=== PATIENT | female | born 1970 | race Caucasian/White ===

== ENCOUNTER → 2018-09-06 22:30 | Outpatient (CLI) | payer MEDICAID, SELFPAY ==
[2018-09-06 22:51] LABS: Absolute Lymphocyte Count 2.34 X10^3/ul (0.83-4.51); Absolute Neutrophil Count 5.2 X10^3/uL (2.0-7.7); Basophil# 0.02 X10^3/uL; Basophil% 0.2 % (0-1); Eosinophil# 0.39 X10^3/uL; Eosinophils% 4.5 % (0-5); Hematocrit 43.1 % (37-47); Hemoglobin 13.9 g/dl (12.0-15.0); Lymphocyte # 2.34 X10^3/ul (4.0); Lymphocyte % 26.9 % (19-41); Mean Corp Hgb Conc 32.3 g/gl (32-36); Mean Corpuscular Hgb 29.4 pg (27.0-32.0); Mean Corpuscular Volume 91.1 fL (81-99); Mean Platelet Vol. 11.6 fl (6.2-12.0); Monocyte# 0.69 X10^3/uL; Monocyte% 7.9 % (0-10); Neutrophil # 5.24 X10^3/uL (2.7-7.7); Neutrophil % 60.3 % (47-70); Platelet Count 248 K/mm3 (150-450); RBC Distribution Width CV 13.9 % (11.6-14.6); RBC Distribution Width SD 45.9 fl (35.1-43.9); Red Blood Count 4.73 M/mm3 (4.2-5.4); White Blood Count 8.7 K/mm3 (4.4-11.0)
[2018-09-06 23:09] LABS: ALB/GLOB Ratio 0.9 RATIO (0.9-2.4); AST(SGOT) 25 U/L (15-37); Alanine Aminotransfer ALT/SGPT 34 U/L (13-56); Albumin, Serum 3.8 g/dL (3.2-5.0); Alkaline Phosphatase 65 U/L (45-117); Anion Gap 7 (5-15); BUN 21 mg/dL (7-18); BUN/Creat Ratio 22.8 RATIO (10-20); Calcium,Total 9.1 mg/dL (8.5-10.1); Chloride 102 mmol/L (98-107); Cholesterol 203 mg/dL (200); Creatinine, Serum 0.92 mg/dL (0.55-1.02); EST Glomerular Filtration Rate 69 mL/min (>60); Est Glom Filt Rate - Afr Amer 83 mL/min (>60); Globulin 4.1 g/dL (2.2-4.2); Glucose 98 mg/dL (74-106); High Density Lipoprotein 54 mg/dL; Potassium 3.8 mmol/L (3.5-5.1); Protein, Total 7.9 g/dL (6.4-8.2); Sodium Level 140 mmol/L (136-145); Triglycerides 89 mg/dL; Very Low Density Lipoprotein 18 mg/dL (5-40)
[2018-09-06 23:13] LABS: POSITIVE COUNT NO; POSITIVE DIFFERENTIAL NO; POSITIVE MORPHOLOGY NO
== END ==
PROVIDERS: Referring Provider Nurse Practitioner; Visit Provider Nurse Practitioner
DX: E78.00 Pure hypercholesterolemia, unspecified (principal); R73.9 Hyperglycemia, unspecified; D64.9 Anemia, unspecified
CPT/HCPCS: 80053; 80061; 85025

== ENCOUNTER → 2023-04-14 | Outpatient (CLI) | payer BC, SELFPAY ==
[2023-04-14 21:10] LABS: Absolute Lymphocyte Count 2.11 X10^3/uL (0.83-4.51); Absolute Neutrophil Count 5.4 X10^3/uL (2.0-7.7); Basophil# 0.02 X10^3/uL; Basophil% 0.2 % (0-1); Eosinophil# 0.53 X10^3/uL; Eosinophils% 6.1 % (0-5); Hematocrit 39.3 % (37-47); Hemoglobin 12.4 g/dL (12.0-15.0); Lymphocyte # 2.11 X10^3/ul (0.83-4.51); Lymphocyte % 24.1 % (19-41); Mean Corp Hgb Conc 31.6 g/dL (32-36); Mean Corpuscular Hgb 28.8 pg (27.0-32.0); Mean Corpuscular Volume 91.4 fL (81-99); Mean Platelet Vol. 11.2 fl (6.2-12.0); Monocyte# 0.64 X10^3/uL; Monocyte% 7.3 % (0-10); NRBC Flagged by Analyzer 0 % (0-5); Neutrophil # 5.44 X10^3/uL (2.7-7.7); Neutrophil % 62.2 % (47-70); Platelet Count 243 K/mm3 (150-450); RBC Distribution Width CV 13.8 % (11.6-14.6); RBC Distribution Width SD 46.6 fl (35.1-43.9); White Blood Count 8.8 K/mm3 (4.4-11.0)
[2023-04-14 21:44] LABS: AST(SGOT) 45 U/L (15-37); Alanine Aminotransfer ALT/SGPT 36 U/L (13-56); Albumin, Serum 3.6 g/dL (3.2-5.0); Alkaline Phosphatase 68 U/L (45-117); Anion Gap 5 (5-15); BUN 18 mg/dL (7-18); BUN/Creat Ratio 18.1 RATIO (10-20); Calcium,Total 8.8 mg/dL (8.5-10.1); Chloride 107 mmol/L (98-107); Cholesterol 163 mg/dL (200); Creatinine, Serum 0.99 mg/dL (0.55-1.02); EST Glomerular Filtration Rate 62 mL/min (>60); Est Glom Filt Rate - Afr Amer 75 mL/min (>60); Globulin 3.7 g/dL (2.2-4.2); Glucose 93 mg/dL (74-106); High Density Lipoprotein 67 mg/dL; Protein, Total 7.3 g/dL (6.4-8.2); Sodium Level 142 mmol/L (136-145); Triglycerides 80 mg/dL; Very Low Density Lipoprotein 16 mg/dL (5-40)
[2023-04-17 15:07] LABS: EBV Acute VCA IgM < 36.0 U/mL (0.0-35.9); EBV-VCA IgG > 600.0 U/mL (0.0-17.9)
[2023-04-18 13:08] LABS: Anti-Centromere B Ab <0.2 AI (0.0-0.9); Anti-Chromatin <0.2 AI (0.0-0.9); Anti-Jo <0.2 AI (0.0-0.9); Anti-Scleroderma-70 AB <0.2 AI (0.0-0.9); Anti-dsDNA Ab 1 IU/mL (0-9); RNP Ab <0.2 AI (0.0-0.9); SJOGREN'S Anti-SS-A test 0.2 AI (0.0-0.9); SJOGREN'S Anti-SS-B test < 0.2 AI (0.0-0.9); Smith Ab <0.2 AI (0.0-0.9)
== END | disposition home or self-care (01) ==
PROVIDERS: Visit Provider Nurse Practitioner
DX: Z00.00 Encounter for general adult medical examination without abnormal findings (principal); E78.00 Pure hypercholesterolemia, unspecified; R73.9 Hyperglycemia, unspecified
CPT/HCPCS: 80053; 80061; 82652; 85025; 86225; 86235; 86664; 86665

== ENCOUNTER 2023-10-08 09:31 | Emergency (ER) | payer BC, SELFPAY ==
[2023-10-08 09:31] VITALS: BP 134/80; PULSE 100; RESP 16; TEMP 37.6; O2SAT 100; BMI 26.2
--- NOTE | 2023-10-08 10:29 | EDS_ITS ---
HPI History of Present Illness Chief Complaint: Rash Narrative Narrative: 53-year-old female who denies significant past medical history, presents with rash all over her body that has been spreading since it began on Monday, approximately 5 days ago. She denies any new lotions or detergents but states perhaps a week ago , she was using essential oil on her hardwood floor, and using her hands. Additionally, she had knee pain bilaterally and was using some sort of salve that she used on evening, Monday, and Monday of last week. It was on Monday when she began having a rash all over her bilateral legs. This seems to have spread all over her body, onto her chest, and today she woke up with a rash on the right side of her face. It is itchy, burning, and painful as well. She thinks that she has a fever as well. Her relays history that they went to the urgent care, but were sent here to the emergency department to get IV medication. She denies any difficulty swallowing, no difficulty breathing, no prior reactions. [facility] Home Medications calcium carbonate 333 mg-magnesium oxide 133 mg-zinc gluc 5 mg tablet tab PO 09/06/18 [History Last Taken Unknown] omega 3-hyv-hzn-fish oil 1,000 mg (120 mg-180 mg) capsule (Fish Oil) cap PO 09/06/18 [History Last Taken Unknown] vitamin B complex (B Complex-Vitamin B12 tablet) 1 tab PO DAILY 09/06/18 [Hi story Last Taken Unknown] famotidine 20 mg tablet (Pepcid AC) 20 mg PO DAILY #14 tabs 10/08/23 [Rx Last Taken Unknown] prednisone 20 mg tablet 40 mg (2 x 20 mg) PO DAILY 10 days #20 tabs 10/08/23 [Rx Last Taken Unknown] Allergy/AdvReac Type Severity Reaction Status Date / Time No Known Allergies Allergy Verified 04/16/23 13:08 Family History Grandmother Diabetes Kidney disease Mother Hypertension Social History Smoking Status: Never smoker ROS ROS ED ROS Narrative Constitutional: Subjective fever, no chills. HEENT: No sore throat. No neck pain. No loss of vision. No rhinorrhea. No difficulty swallowing. No throat closing. Cardiovascular: No chest pain. No palpitations. No pedal edema. Respiratory: No cough, no shortness of breath. Abdominal: No abdominal pain. No nausea. No vomiting. Genitourinary: No dysuria. No hematuria. Musculoskeletal: No myalgias. No arthralgias. Neurologic: No headaches. No dizziness. No lightheadedness. Skin: Positive for itchy, painful rash. No change in color. Psychiatric: No depression. No anxiety. EXAM Physical Exam Narrative Exam Narrative: Afebrile. Vital signs noted. Nontoxic-appearing. HEENT: Normocephalic. Atraumatic. PERRL, EOMI. Neck soft and supple. No point tenderness or step off. Airway patent. No mucosal lesions. No drooling or trismus. No stridor. Cardiovascular: Regular rate and rhythm with intermittent tachycardia.. No murmurs, rubs, or gallops appreciated. Respiratory: No tachypnea. Lungs clear to auscultation bilaterally. Gastrointestinal: Abdomen soft, nontender, with normoactive bowel sounds. No rebound or guarding. Neurological: Awake. Alert. Nonfocal, nonlateralizing. Skin: Positive diffuse, maculopapular rash, concentrated on legs on medial portions bilaterally. Also noted to be on chest/torso and right side of face. Normal color. No pallor. Musculoskeletal: No pedal edema. Full range of motion extremities. Const Vital Signs: 10/08/23 09:31 Temperature 99.6 F H Temperature Source Temporal Pulse Rate 100 Respiratory Rate 16 Blood Pressure 134/80 H Blood Pressure Mean 98 Pulse Ox 100 Oxygen Delivery Method Room Air MDM MDM MDM Narrative Medical decision making narrative: In the differential diagnosis is diffuse allergic reaction versus vasculitis versus cellulitis. She is afebrile here. Her pulse ox is 100% on room air. I have low concern for anaphylaxis. I do feel that laboratory work is indicated. Additionally, she will be given a loading dose of Solu-Medrol 125 mg intravenously along with Benadryl 25 mg and Pepcid 20 mg. I reviewed her laboratory work from today and she has normal white count of 8.7, hemoglobin normal at 14.4, platelet count normal at 234. CRP is elevated at 27. CMP is grossly unremarkable, no evidence of dehydration. Upon repeat examination, she feels slightly improved. As her pulse ox is 100% on room air and she is afebrile here, I do not feel she requires observation or transfer. I feel she can be discharged to follow-up with her primary care provider and she may need referral to dermatology or allergy. She and her are comfortable with discharge. Strict return instructions were reviewed. I do not feel she requires epinephrine. She may have more of a dermatitis as well, and may be autoimmune. She will be discharged with prescriptions for Pepcid and for prednisone burst for the next 10 days of 40 mg. She will continue [id number] Benadryl. Disposition is discharged home in stable condition. History & Record Review Discussion w/independent historian: Patient and Family () Additional record(s) reviewed:: No prior records Lab Data Attestation: I reviewed the patient's lab results. Labs: Laboratory Results - last 24 hr 10/08/23 10:44 WBC 8.7 RBC 4.94 Hgb 14.4 Hct 45.5 MCV 92.1 MCH 29.1 MCHC 31.6 L RDW Std Deviation 46.5 H RDW Coeff of Naomie 13.7 Plt Count 234 MPV 10.6 Immature Gran % (Auto) 0.100 Neut % (Auto) 77.4 H Lymph % (Auto) 12.1 L Perry % (Auto) 6.1 Eos % (Auto) 4.2 Baso % (Auto) 0.1 Absolute Neuts (auto) 6.7 Absolute Lymphs (auto) 1.05 Nucleated RBC % 0 Sodium 139 Potassium 3.9 Chloride 106 Carbon Dioxide 29.0 Anion Gap 4 L BUN 13 Creatinine 0.97 Estim Creat Clear Calc 66.88 Est GFR (MDRD) Af Amer 77 Est GFR (MDRD) Non-Af 64 BUN/Creatinine Ratio 13.4 Glucose 102 Calcium 8.2 L Total Bilirubin 0.40 AST 14 L ALT 18 Alkaline Phosphatase 60 C-React Prot Ext Range 27.00 H Total Protein 6.4 Albumin 3.2 Globulin 3.2 Albumin/Globulin Ratio 1.0 Discharge Plan Triage Chief Complaint: Rash ED Provider: Rubén Singh Dx/Rx/DC Orders Clinical Impression: Dermatitis, Rash and nonspecific skin eruption Instructions: ED Atopic Dermatitis (Adult), ED Erythema Prescriptions: New prednisone 20 mg tablet 40 mg PO DAILY 10 Days Qty: 20 0RF famotidine [Pepcid AC] 20 mg tablet 20 mg PO DAILY Qty: 14 0RF No Action omega 9-ypw-hiw-fish oil [Fish Oil] 1,000 mg (120 mg-180 mg) capsule PO vitamin B complex [B Complex-Vitamin B12] tablet 1 tab PO DAILY calcium carbonate 333 mg-magnesium oxide 133 mg-zinc gluc 5 mg tablet 333-133-5 mg tablet PO Primary Care Provider: Alyssia Flowers NP Referrals: Alyssia Flowers NP, HOSPICE CARE TRANSITIONS COORDINATOR-C [Primary Care Provider] - 1-2 Days if not improving Activity Restrictions/Additional Instructions: Take medications as directed. Continue Benadryl 25 to 50 mg every 6 hours as needed. Follow-up with your primary care provider in the next few days. You may need referral to an fabric awning repairer or optical effects camera operator. Disposition Disposition: Home, Self Care
[2023-10-08] MEDS: DiphenhydrAMINE 50 MG/ML Syringe 25 MG IV (10:48)
[2023-10-08] MEDS: MethylPREDNISolone 125 MG/2 ML Vial IV (10:48)
[2023-10-08] MEDS: Famotidine 200 MG/20 ML MDV 20 MG in 0.9% Normal Saline (Pres. free 8 ML 300 MG IV (10:49)
[2023-10-08 10:52] LABS: Absolute Lymphocyte Count 1.05 X10^3/uL (0.83-4.51); Absolute Neutrophil Count 6.7 X10^3/uL (2.0-7.7); Basophil# 0.01 X10^3/uL; Basophil% 0.1 % (0-1); Eosinophil# 0.36 X10^3/uL; Eosinophils% 4.2 % (0-5); Hematocrit 45.5 % (37-47); Hemoglobin 14.4 g/dL (12.0-15.0); Lymphocyte # 1.05 X10^3/ul (0.83-4.51); Lymphocyte % 12.1 % (19-41); Mean Corp Hgb Conc 31.6 g/dL (32-36); Mean Corpuscular Hgb 29.1 pg (27.0-32.0); Mean Corpuscular Volume 92.1 fL (81-99); Mean Platelet Vol. 10.6 fl (6.2-12.0); Monocyte# 0.53 X10^3/uL; Monocyte% 6.1 % (0-10); NRBC Flagged by Analyzer 0 % (0-5); Neutrophil # 6.69 X10^3/uL (2.7-7.7); Neutrophil % 77.4 % (47-70); Platelet Count 234 K/mm3 (150-450); RBC Distribution Width CV 13.7 % (11.6-14.6); RBC Distribution Width SD 46.5 fl (35.1-43.9); Red Blood Count 4.94 M/mm3 (4.2-5.4); White Blood Count 8.7 K/mm3 (4.4-11.0)
[2023-10-08 11:08] LABS: AST(SGOT) 14 U/L (15-37); Alanine Aminotransfer ALT/SGPT 18 U/L (13-56); Albumin, Serum 3.2 g/dL (3.2-5.0); Alkaline Phosphatase 60 U/L (45-117); Anion Gap 4 (5-15); BUN 13 mg/dL (7-18); BUN/Creat Ratio 13.4 RATIO (10-20); Calcium,Total 8.2 mg/dL (8.5-10.1); Chloride 106 mmol/L (98-107); Creatinine, Serum 0.97 mg/dL (0.55-1.02); EST Glomerular Filtration Rate 64 mL/min (>60); Est Glom Filt Rate - Afr Amer 77 mL/min (>60); Estimated Creatinine Clearance 66.88 ml/min; Globulin 3.2 g/dL (2.2-4.2); Glucose 102 mg/dL (74-106); Potassium 3.9 mmol/L (3.5-5.1); Protein, Total 6.4 g/dL (6.4-8.2); Sodium Level 139 mmol/L (136-145)
[2023-10-08 12:09] VITALS: BP 101/50
== END 2023-10-08 12:11 | disposition home or self-care (01) ==
PROVIDERS: Emergency Provider Emergency Medicine; PCP Nurse Practitioner; Visit Provider Emergency Medicine
DX: R21 Rash and other nonspecific skin eruption (principal); L30.9 Dermatitis, unspecified
CPT/HCPCS: 80053; 85025; 86140; 96374; 96375; 99283; A4216; J3490